=== PATIENT | female | born 1955 | race African-American/Black ===

== ENCOUNTER 2017-01-18 17:32 | Emergency (ER) | payer OTHER ==
[~2017-01-18] VITALS: Ht 165.1 cm; Wt 86.2 kg
[2017-01-18 17:57] VITALS: BP 137/72
--- NOTE | 2017-01-18 18:44 | PHYS DOC ---
Past Medical History Past Medical History: CAD, [place], Other Additional Past Medical Histor: BACK PAIN, SPINAL STENOSIS Past Surgical History: No Surgical History Alcohol Use: None Drug Use: None Adult General Chief Complaint Chief Complaint: KNEE INJURY HPI HPI Patient is a 61 year old female who presents with left knee injury. The patient states 1 week ago she slipped on a marble floor, fell forward onto left knee. She complains of persistent pain & swelling anteriorly. She was able to bear weight immediately after injury as well as today. No syncope contributing to fall, denies other injuries including head trauma. She has no previous history of knee injury. has been applying ice, taking extra strength tylenol, applying topical medications without relief. PCP at [facility]. Review of Systems Review of Systems Constitutional: Denies fever or chills HENT: Denies nasal congestion or sore throat Respiratory: Denies cough or shortness of breath Cardiovascular: Denies chest pain GI: Denies abdominal pain Musculoskeletal: Reports knee pain Integument: Denies rash Neurologic: Denies headache Allergies Allergies Allergies Coded Allergies Type Severity Reaction Last Updated Verified NSAIDS (Non-Steroidal Anti-Inflamma Allergy Intermediate Rash 01/18/17 Yes codeine Allergy Intermediate Rash 01/18/17 Yes Physical Exam Physical Exam Constitutional: obese, no acute distress, non-toxic appearance. HENT: Normocephalic, atraumatic, bilateral external ears normal, oropharynx moist, nose normal. Eyes: conjunctiva normal, no discharge. Cardiovascular: no edema. Lungs & Thorax: no respiratory distress. Abdomen: nondistended. Skin: Warm, dry, Extremities: left knee no deformity, mild generalized/anterior swelling & ecchymosis inferolaterally around the patella, tenderness anteriorly over patella, no medial or lateral joint line tenderness, intact straight leg raise, intact flexion/extension, negative anterior/posterior drawer, stable to valgus/ varus stress, dp/pt 2+, sensation intact to foot. no ankle tenderness. Neurologic: Alert and oriented X 3 Current Patient Data Vital Signs Vital Signs Date Time Temp Pulse Resp B/P (MAP) Pulse Ox O2 Delivery O2 Flow Rate FiO2 01/18/17 17:57 98.0 99 18 100 Room Air 98.0 EKG EKG [] Radiology/Procedures Radiology/Procedures XR L knee: interpreted by me: no fracture or dislocation, no acute process.[] Course & Med Decision Making Course & Med Decision Making Pertinent Labs and Imaging studies reviewed. (See chart for details) Patient presents with knee pain. Obtained XR. Negative for fracture. Recommend rest, catalina wrap, elevation, ice, tylenol/ibuprofen. Follow up with Dr. Shaikh in orthopedic clinic if not improving in 1 week. Come back for neurovascular compromise or otherwise worsening condition. Discharged home in stable condition. [] Dragon Disclaimer Dragon Disclaimer This electronic medical record was generated, in whole or in part, using a voice recognition dictation system. Departure Departure Impression: Primary Impression: Knee pain Disposition: HOME, SELF-CARE Condition: STABLE Referrals: DAMIEN NI MD Patient Instructions: Knee Pain, [id number] Additional Instructions: You were seen in the emergency department today for knee pain. The x-ray did not show a fracture. Please rest, apply ice, use catalina wrap, elevate when able, take tylenol or ibuprofen for pain. Follow up with Dr. Shaikh if symptoms continue in 1 week. Come back for cold foot, numbness or weakness in foot, any otherwise worsening condition. IVETTE COLÓN MD January 18, 2017 18:44
--- NOTE | 2017-01-19 09:29 | RAD ---
Indication fall, pain. AP oblique and lateral views of the left knee were obtained as well as a sunrise view. No acute bony finding is seen. Vascular clips are noted. IMPRESSION: No acute bony finding
== END 2017-01-18 19:13 | disposition home or self-care (01) ==
LOC: ER 17:32
DX: M25.562 Pain in left knee (principal); I25.10 Atherosclerotic heart disease of native coronary artery without angina pectoris; I25.2 Old myocardial infarction; M48.00 Spinal stenosis, site unspecified; Z88.5 Allergy status to narcotic agent; Z88.8 Allergy status to other drugs, medicaments and biological substances; W01.0XXA Fall on same level from slipping, tripping and stumbling without subsequent striking against object, initial encounter; Y93.89 Activity, other specified; Y99.8 Other external cause status; Y92.89 Other specified places as the place of occurrence of the external cause
CPT/HCPCS: 73564; 99284

== ENCOUNTER 2018-11-28 10:07 | Emergency (ER) | payer OTHER ==
[~2018-11-28] VITALS: Ht 165.1 cm; Wt 86.6 kg
[2018-11-28] MEDS ORDERED: ACETAMINOPHEN 325 MG TABLET. PO ONE (11:00)
--- NOTE | 2018-11-28 11:20 | PHYS DOC ---
Past Medical History Past Medical History: CAD, [place], Other Additional Past Medical Histor: BACK PAIN, SPINAL STENOSIS Past Surgical History: Angioplasty, Coronary Bypass Surgery, Other Additional Past Surgical Histo: BACK X 2,CARDIAC STENTS Alcohol Use: None Drug Use: None Adult General Chief Complaint Chief Complaint: FACE PROBLEM HPI HPI Patient is a 63 year old female who presents with face, neck, and head pain after a mechanical fall w/out LOC. Pt reports falling while stepping onto the sidewalk outside of [facility] on her way to cardiac rehab. She says she fell directly on her chin/face because she did not have time to catch herself with her hands. After the fall she experienced new onset neck pain, upper back (T1~8) pain, headache, and mouth/jaw pain along with blurry vision. The pain is described as a burning pain rated 6 or 7/10 that radiates to her arms and anterior thigh. Her jaw/chin pain is causing her the most discomfort per pt. She adamantly denies LOC. She denies n/v, SOB, CP, dysuria, hematuria, and dysuria. She denies muscle weakness/paralysis or numbness. The patient also noted becoming progressively more "sleepy" since her fall. Review of Systems Review of Systems Constitutional: Denies fever or chills Eyes: Admits new onset blurry vision. Denies redness, or eye pain HENT: Denies nasal congestion or sore throat Respiratory: Denies cough or shortness of breath Cardiovascular: No additional information not addressed in HPI GI: Denies abdominal pain, nausea, vomiting, bloody stools or diarrhea : Denies dysuria or hematuria Musculoskeletal: Admits upper thoracic back pain, neck pain, jaw pain, chin pain , and joint pain. Integument: Denies rash or skin lesions [] Neurologic: Admits headache. Denies focal weakness or sensory changes [] All other systems were reviewed and found to be within normal limits, except as documented in this note. Current Medications Current Medications Current Medications Medications (Trade) Dose Ordered Sig/Oksana Start Time Stop Time Status Last Admin Dose Admin Acetaminophen (Tylenol) 650 mg 1X ONCE 11/28/18 11:00 11/28/18 11:01 DC 11/28/18 12:00 650 MG Allergies Allergies Allergies Coded Allergies Type Severity Reaction Last Updated Verified NSAIDS (Non-Steroidal Anti-Inflamma Allergy Intermediate Rash 01/18/17 Yes codeine Allergy Intermediate Rash 01/18/17 Yes rosuvastatin Allergy Intermediate 11/28/18 Yes Physical Exam Physical Exam Constitutional: Well developed, well nourished, no acute distress, non-toxic appearance. [] HENT: Normocephalic, bilateral external ears normal, oropharynx moist but dried blood in the oropharynx and lips appreciated on inspection, Abrasion on chin right of midline, abrasion on nose, scant dried blood appreciated on nasal inspection. Eyes: PERRLA, EOMI, conjunctiva normal, no discharge. Neck: Normal range of motion, no tenderness, supple, no stridor. Cardiovascular:Heart rate regular rhythm, no murmur Lungs & Thorax: Bilateral breath sounds clear to auscultation Abdomen: Bowel sounds normal, soft, no tenderness, no masses, no pulsatile masses. Skin: Warm, dry, no erythema, no rash. Back: tenderness in neck and thoracic region, no CVA tenderness. Extremities: No tenderness, no cyanosis, no clubbing, ROM intact, no edema. 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 CN II-XII grossly intact b/l Psychologic: Affect normal, judgement normal, mood normal. Current Patient Data Vital Signs Vital Signs Date Time Temp Pulse Resp B/P (MAP) Pulse Ox O2 Delivery O2 Flow Rate FiO2 11/28/18 10:11 98.0 83 20 188/85 (119) 100 Room Air 98.0 EKG EKG [] Radiology/Procedures Radiology/Procedures [] Course & Med Decision Making Course & Med Decision Making Consuelo Laughlin is a 63 yo female with a history of CAD, NM, and Spinal Stenosis presenting with a mechanical fall landing directly on her face. She did not have a LOC and can relay the events happening both before and after the fall occurred. After the fall she describes new onset burning pain in the neck, upper thoracic spine, and the jaw/chin that she rates a 6 or 7 out of 10. She also complains of new onset WATKINS and blurry vision. Upon arrival to the ED a c spine collar was put on the patient. Her jaw and chin pain is most bothersome to her per pt. 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 She denies CP, SOB, and n/v. Ddx Fracture - maxilla, mandibular, cervical spine, nasal EDH/SDH TBI Workup C-spine collar placed, CT scan w/out contrast. imaging negative reassured d/c stable condition Dragon Disclaimer Dragon Disclaimer This electronic medical record was generated, in whole or in part, using a voice recognition dictation system. Departure Departure Impression: Primary Impression: Contusion of face Disposition: HOME, SELF-CARE Condition: STABLE Referrals: IVETTE GUADARRAMA (PCP) KATELIN HONEYCUTT MD Nov 28, 2018 11:20
--- NOTE | 2018-11-28 11:45 | RAD ---
PQRS Compliance Statement: One or more of the following individualized dose reduction techniques were utilized for this examination: 1. Automated exposure control 2. Adjustment of the mA and/or kV according to patient size 3. Use of iterative reconstruction technique CT HEAD, MAXILLOFACIAL, AND CERVICAL SPINE WITHOUT CONTRAST History: FALL ON CURB FACIAL INJURY Comparison: MR brain without contrast March 11, 2013. Procedure: Axial images are obtained of the head from the skull base through the vertex without IV contrast. Noncontrast helical CT of the cervical spine was performed. Axial, sagittal, and coronal reconstructions were obtained. Helical CT imaging of the facial bones is performed without IV contrast. Findings: The ventricles and sulci are normal for the patient's age. No mass-effect, midline shift, hemorrhage or obvious acute infarction is identified. Basilar cisterns are patent. Bone windows demonstrate no significant calvarial abnormality. No acute facial bone fracture. The orbital floors are intact. The ostiomeatal complexes are patent. The patient is edentulous. Minimal mucosal thickening inferiorly in the bilateral maxillary sinuses. There is no air-fluid level. Mastoid air cells are well aerated. There is no evidence of acute fracture or acute malalignment of the cervical spine. Straightening of normal cervical lordosis may be positional or due to muscle spasm. Mild grade 1 retrolisthesis of C7 on T1. The alignment is otherwise maintained. There is disc space narrowing at C7/T1. Other disc spaces relatively maintained. There is degenerative endplate spurring of C5/C6 and C6/C7 and C7/T1. No perched or jumped facets. The craniovertebral junction is normal. Visualized soft tissues of the neck demonstrate no significant abnormalities. The visualized lung apices are clear. IMPRESSION: 1. No acute intracranial abnormality. 2. No acute fracture of the cervical spine. 3. No acute facial bone fracture. Electronically signed by: Wolf Paiz MD (11/28/2018 11:43 AM) [id number]
[2018-11-28 12:19] VITALS: BP 163/72
== END 2018-11-28 12:38 | disposition home or self-care (01) ==
LOC: ER 10:07
DX: S00.83XA Contusion of other part of head, initial encounter (principal); M54.2 Cervicalgia; M54.6 Pain in thoracic spine; I25.2 Old myocardial infarction; I25.10 Atherosclerotic heart disease of native coronary artery without angina pectoris; Z95.5 Presence of coronary angioplasty implant and graft; Z95.1 Presence of aortocoronary bypass graft; Z88.5 Allergy status to narcotic agent; Z88.6 Allergy status to analgesic agent; Z88.8 Allergy status to other drugs, medicaments and biological substances; W10.1XXA Fall (on)(from) sidewalk curb, initial encounter; Y93.9 Activity, unspecified; Y92.238 Other place in hospital as the place of occurrence of the external cause; Y99.8 Other external cause status
CPT/HCPCS: 70450; 70486; 72125; 99284-25

== ENCOUNTER 2018-12-11 22:29 | Emergency (ER) | payer OTHER ==
[~2018-12-11] VITALS: Ht 165.1 cm; Wt 86.6 kg
[2018-12-11 22:37] VITALS: BP 158/72
[2018-12-11] MEDS ORDERED: TETRACAINE 0.5% OPHTH SOLUTION 4ML BOTTLE. OS ONE (23:45)
--- NOTE | 2018-12-12 00:14 | RAD ---
CT scan of the orbits without contrast 12/03/2018 CLINICAL HISTORY: Patient fell one week ago striking face. Patient feels like left eye is bulging out. TECHNIQUE: Unenhanced, contiguous, 0.625 mm axial sections were obtained through the facial bones and orbits. 3 mm reconstructed sagittal, axial and coronal images were obtained. One or more of the following individualized dose reduction techniques were utilized for this study: 1. Automated exposure control. 2. Adjustment of the mA and/or kV according to patient size. 3. Use of iterative reconstruction technique. Findings: No facial bone fracture is seen. No orbital fracture is noted. The globes, extraocular muscles and optic nerve sheath complexes are within normal limits bilaterally. No orbital hemorrhage is seen. The paranasal sinuses are essentially clear. No air-fluid level is seen. The patient is edentulous. IMPRESSION: No facial bone or orbital fracture is seen. Electronically signed by: Skip Mcgee MD (12/12/2018 12:11 AM) [facility]
--- NOTE | 2018-12-12 00:33 | PHYS DOC ---
Past Medical History Past Medical History: CAD, [place], Other Additional Past Medical Histor: BACK PAIN, SPINAL STENOSIS (ADRIANNE SLAUGHTER APRN) Past Surgical History: No Surgical History, Coronary Bypass Surgery, Other Additional Past Surgical Histo: BACK X 2,CARDIAC STENTS (ADRIANNE SLAUGHTER APRN) Alcohol Use: None Drug Use: None (ADRIANNE SLAUGHTER APRN) Adult General Chief Complaint Chief Complaint: SKIN RASH/ABSCESS [facility] HPI Patient is a 63 year old female who presents to the emergency department with complaints of a rash on her chin. Patient states she was seen here on November 28 after she fell in a parking lot. She has been using peroxide to clean the area and applying [id number] triple antibiotic ointment to the area but reports that the redness has gotten worse and now the skin itches. She denies any fever, nausea, vomiting, neck pain, or drainage from the rash. In addition, patient continues to report having blurry vision in her left eye since the fall. She reports concern of her eye feeling like it is bulging out of the socket in the mornings when she wakes up, she denies any knew injury since the fall. (ADRIANNE SLAUGHTER APRN) Review of Systems Review of Systems Constitutional: Denies fever or chills [] Eyes: See HPI HENT: Denies nasal congestion or sore throat [] Respiratory: Denies cough or shortness of breath [] Cardiovascular: No additional information not addressed in HPI [] GI: Denies nausea, or vomiting [] Musculoskeletal: Denies back pain or joint pain [] Integument: See HPI Neurologic: Denies headache, focal weakness or sensory changes [] Complete systems were reviewed and found to be within normal limits, except as documented in this note. (ADRIANNE SLAUGHTER APRN) Current Medications Current Medications Current Medications Medications (Trade) Dose Ordered Sig/Oksana Start Time Stop Time Status Last Admin Dose Admin Tetracaine HCl (Tetracaine) 1 drop 1X ONCE 12/11/18 23:45 12/11/18 23:46 DC 12/11/18 23:45 1 DROP (ANI ROMANO DO) Allergies Allergies Allergies Coded Allergies Type Severity Reaction Last Updated Verified NSAIDS (Non-Steroidal Anti-Inflamma Allergy Intermediate Rash 01/18/17 Yes codeine Allergy Intermediate Rash 01/18/17 Yes rosuvastatin Allergy Intermediate 11/28/18 Yes (ANI ROMANO DO) Physical Exam Physical Exam Constitutional: Well developed, well nourished, no acute distress, non-toxic appearance, obese. [] HENT: Normocephalic, bilateral external ears normal, oropharynx moist, no oral exudates, nose normal. [] Eyes: PERRLA, EOMI, conjunctiva normal, no discharge, mild swelling noted to left eyelid with healing bruising noted to upper eyelid; red reflex present bilaterally [] Neck: Normal range of motion, no stridor. [] Lungs & Thorax: Respirations even and unlabored, no retractions, no respiratory distress Skin: Warm, dry; mild erythema with pustules consistent with impetigo noted to chin Extremities: No cyanosis, ROM intact, Neurologic: Alert and oriented X 3, normal motor function, normal sensory function, no focal deficits noted. [] Psychologic: Affect normal, judgement normal, mood normal. [] (ADRIANNE SLAUGHTER APRN) Current Patient Data Vital Signs Vital Signs Date Time Temp Pulse Resp B/P (MAP) Pulse Ox O2 Delivery O2 Flow Rate FiO2 12/11/18 22:37 98.6 89 16 158/72 (100) 98 Room Air 98.6 (ANI ROMANO DO) EKG EKG [] (ADRIANNE SLAUGHTER APRN) Radiology/Procedures Radiology/Procedures PROCEDURE: CT ORBITS WO CONTRAST CT scan of the orbits without contrast 12/03/2018 CLINICAL HISTORY: Patient fell one week ago striking face. Patient feels like left eye is bulging out. TECHNIQUE: Unenhanced, contiguous, 0.625 mm axial sections were obtained through the facial bones and orbits. 3 mm reconstructed sagittal, axial and coronal images were obtained. One or more of the following individualized dose reduction techniques were utilized for this study: 1. Automated exposure control. 2. Adjustment of the mA and/or kV according to patient size. 3. Use of iterative reconstruction technique. Findings: No facial bone fracture is seen. No orbital fracture is noted. The globes, extraocular muscles and optic nerve sheath complexes are within normal limits bilaterally. No orbital hemorrhage is seen. The paranasal sinuses are essentially clear. No air-fluid level is seen. The patient is edentulous. IMPRESSION: No facial bone or orbital fracture is seen.. Visual Acuities L eye 20/25, R eye 20/200, both eyes 20/20 Intraocular pressure of R eye is 15 (ADRIANNE SLAUGHTER APRN) Course & Med Decision Making Course & Med Decision Making Pertinent Labs and Imaging studies reviewed. (See chart for details) dx: impetigo of chin, closed head injury CT head negative for any acute findings. IOP normal no evidence of acute eye injury, physical exam consistent with impetigo. Pt encouraged to only use mild face cleansers for facial washing. Prescription written for mupirocin ointment, Follow up with PCP if sx persist, return to ER if sx worsen. Pt was also evaluated by Dr. Romano. Patient verbalized an understanding of home care, medications, follow-up, and return to ED instructions and was in agreement with the plan of care. [] (ADRIANNE SLAUGHTER APRN) Dragon Disclaimer Dragon Disclaimer This electronic medical record was generated, in whole or in part, using a voice recognition dictation system. (ADRIANNE SLAUGHTER APRN) Departure Departure Impression: Primary Impression: Impetigo any site Additional Impressions: History of closed head injury History of blurred vision Disposition: 01 HOME, SELF-CARE Condition: STABLE Referrals: IVETTE GUADARRAMA (PCP) Patient Instructions: Head Injury, Adult, [id number], Impetigo Additional Instructions: Fill the prescription and use it as directed. Use only mild facial cleansers to cleanse face. Avoid putting any type of makeup, moisturizer, or other facial products over chin. Follow-up with her primary care doctor for persistent vision changes following head injury. Return to the ER if symptoms worsen. Scripts Mupirocin (MUPIROCIN OINTMENT) 22 Gm Oint...g. 1 KARTIK TP TID for WOUND CARE for 7 Days, #1 TUBE 0 Refills Prov: ADRIANNE SLAUGHTER APRN 12/12/18 Attending Signature Attending Signature I have reviewed the PA/CURED MEAT PACKING SUPERVISOR's note and plan of care. I was available for consultation as needed at all times during the patient's visit in the emergency department. I agree with the clinical impression, plan and disposition. (ANI ROMANO DO) Problem Qualifiers ADRIANNE SLAUGHTER APRN Dec 12, 2018 00:33 ANI ROMANO DO Dec 14, 2018 10:16
[2018-12-12] MEDS ORDERED: MUPI22OI2 TP (00:51)
== END 2018-12-12 01:05 | disposition home or self-care (01) ==
LOC: ER 22:29
DX: S00.12XA Contusion of left eyelid and periocular area, initial encounter (principal); S09.90XA Unspecified injury of head, initial encounter; L01.09 Other impetigo; I25.2 Old myocardial infarction; I25.10 Atherosclerotic heart disease of native coronary artery without angina pectoris; Z95.5 Presence of coronary angioplasty implant and graft; Z95.1 Presence of aortocoronary bypass graft; Z88.5 Allergy status to narcotic agent; Z88.6 Allergy status to analgesic agent; Z88.8 Allergy status to other drugs, medicaments and biological substances; W18.39XA Other fall on same level, initial encounter; Y93.89 Activity, other specified; Y92.481 Parking lot as the place of occurrence of the external cause; Y99.8 Other external cause status
CPT/HCPCS: 70480; 99284-25

== ENCOUNTER 2018-12-15 10:24 | Emergency (ER) | payer OTHER ==
[~2018-12-15] VITALS: Ht 165.1 cm; Wt 86.6 kg
[~2018-12-15 10:24] MED LIST: MUPI22OI2 TP
[2018-12-15] MEDS ORDERED: PROCHLORPERAZINE 10 MG/2 ML VIAL. IV ONE (11:15)
[2018-12-15] MEDS ORDERED: diphenhydrAMINE 50 MG/ML VIAL IVP ONE (11:15)
[2018-12-15 11:29] LABS: BASO # 0.1 x10^3/uL (0.0-0.2); BASO % 1 % (0-3); EOS # 0.3 x10^3/uL (0.0-0.7); EOS % 4 % (0-3); HEMATOCRIT 35.3 % (36.0-47.0); HEMOGLOBIN 11.6 g/dL (12.0-15.5); LYMPH # 2.5 x10^3/uL (1.0-4.8); LYMPH % 34 % (24-48); MEAN CORPUSCULAR HEMOGLOBIN 31 pg (25-35); MEAN CORPUSCULAR HGB CONC 33 g/dL (31-37); MEAN CORPUSCULAR VOLUME 95 fL (79-100); MONO # 0.5 x10^3/uL (0.0-1.1); MONO % 6 % (0-9); NEUT % 55 % (31-73); PLATELET COUNT 250 x10^3/uL (140-400); RED BLOOD COUNT 3.72 x10^6/uL (3.50-5.40); RED CELL DISTRIBUTION WIDTH 14.3 % (11.5-14.5); WHITE BLOOD COUNT 7.2 x10^3/uL (4.0-11.0)
[2018-12-15 11:37] LABS: CREATININE 2.1 mg/dL (0.6-1.0); POTASSIUM 3.7 mmol/L (3.5-5.1)
[2018-12-15 11:54] LABS: ALBUMIN 3.2 g/dL (3.4-5.0); ALBUMIN/GLOBULIN RATIO 0.8 (1.0-1.7); TOTAL BILIRUBIN 0.4 mg/dL (0.2-1.0)
--- NOTE | 2018-12-15 12:17 | RAD ---
CT HEAD INDICATION: left side numbness COMPARISON: 11/28/2018 Exposure: One or more of the following individualized dose reduction techniques were utilized for this examination: 1. Automated exposure control 2. Adjustment of the mA and/or kV according to patient size 3. Use of iterative reconstruction technique TECHNIQUE: 5 mm contiguous axial images were obtained from the skull base to the vertex in both bone and soft tissue algorithm. FINDINGS: Mild bilateral periventricular white matter hypodensities likely chronic small vessel ischemic disease. No evidence of acute intracranial hemorrhage. No extra-axial fluid collections. No mass effect or midline shift. Ventricular size is appropriate. Basal cisterns are patent. No fractures identified.Kim-white differentiation is preserved.Globes and orbits are within normal limits. Paranasal sinuses and mastoid air cells are clear. IMPRESSION: No acute intracranial findings. Electronically signed by: Ananda Latif MD (12/15/2018 12:14 PM) [id number]
--- NOTE | 2018-12-15 12:26 | EKG ---
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
[2018-12-15 13:00] VITALS: BP 182/87
--- NOTE | 2018-12-15 16:58 | PHYS DOC ---
Past Medical History Past Medical History: CAD, [place], Other Additional Past Medical Histor: BACK PAIN, SPINAL STENOSIS Past Surgical History: Angioplasty, Coronary Bypass Surgery, Other Additional Past Surgical Histo: BACK X 2,CARDIAC STENTS Alcohol Use: None Drug Use: None Adult General Chief Complaint Chief Complaint: NEURO SYMPTOMS/DEFICITS [facility] HPI Patient is a 63 year old female who is presenting to the emergency room with a chief complaint of numbness and tingling and fatigue. She says she has been overworked recently she has not been sleeping well she went over to cardiac rehabilitation and she noticed her blood pressure was pretty high and she has had some intermittent numbness and tingling so she came to the emergency room for evaluation she says in fact that that tingling and numbness that she is feeling she feels frequently pretty regularly actually she is used to that but she had not felt on her face before and she did feel on her face earlier no weakness no speech difficulty no visual changes no chest pain she tells me she thinks she really just needs to go home and take a nap. Review of Systems Review of Systems Constitutional: Denies fever or chills [] Eyes: Denies change in visual acuity, redness, or eye pain [] HENT: Denies nasal congestion or sore throat [] Respiratory: Denies cough or shortness of breath [] Cardiovascular: No additional information not addressed in HPI [] GI: Denies abdominal pain, nausea, vomiting, bloody stools or diarrhea [] : Denies dysuria or hematuria [] Musculoskeletal: Denies back pain or joint pain [] Integument: Denies rash or skin lesions [] Neurologic: Denies headache, focal weakness or sensory changes [] Endocrine: Denies polyuria or polydipsia [] All other systems were reviewed and found to be within normal limits, except as documented in this note. Current Medications Current Medications Current Medications Medications (Trade) Dose Ordered Sig/Oksana Start Time Stop Time Status Last Admin Dose Admin Diphenhydramine HCl (Benadryl) 25 mg 1X ONCE 12/15/18 11:15 12/15/18 11:16 DC Prochlorperazine Edisylate (Compazine) 5 mg 1X ONCE 12/15/18 11:15 12/15/18 11:16 DC Allergies Allergies Allergies Coded Allergies Type Severity Reaction Last Updated Verified NSAIDS (Non-Steroidal Anti-Inflamma Allergy Intermediate Rash 01/18/17 Yes codeine Allergy Intermediate Rash 01/18/17 Yes rosuvastatin Allergy Intermediate 11/28/18 Yes Physical Exam Physical Exam Constitutional: Well developed, well nourished, no acute distress, non-toxic appearance. [] HENT: Normocephalic, atraumatic, bilateral external ears normal, oropharynx moist, no oral exudates, nose normal. [] Eyes: PERRLA, EOMI, conjunctiva normal, no discharge. [] Neck: Normal range of motion, no tenderness, supple, no stridor. [] Cardiovascular:Heart rate regular rhythm, no murmur [] Lungs & Thorax: Bilateral breath sounds clear to auscultation [] Abdomen: Bowel sounds normal, soft, no tenderness, no masses, no pulsatile masses. [] Skin: Warm, dry, no erythema, no rash. [] Back: No tenderness, no CVA tenderness. [] Extremities: No tenderness, no cyanosis, no clubbing, ROM intact, no edema. [] Neurologic: Alert and oriented X 3, normal motor function, and NIH stroke scale is actually 0 she can feel everything okay she does report a subjective sensation of numbness but her sensory examination is normal. Fingerare intact speech normal gait normal Psychologic: Affect normal, judgement normal, mood normal. [] Current Patient Data Vital Signs Vital Signs Date Time Temp Pulse Resp B/P (MAP) Pulse Ox O2 Delivery O2 Flow Rate FiO2 12/15/18 13:00 76 16 100 12/15/18 10:33 98.4 179/82 (114) Room Air 98.4 Lab Values Laboratory Tests Test 12/15/18 11:19 White Blood Count 7.2 x10^3/uL (4.0-11.0) Red Blood Count 3.72 x10^6/uL (3.50-5.40) Hemoglobin 11.6 g/dL (12.0-15.5) L Hematocrit 35.3 % (36.0-47.0) L Mean Corpuscular Volume 95 fL (79-100) Mean Corpuscular Hemoglobin 31 pg (25-35) Mean Corpuscular Hemoglobin Concent 33 g/dL (31-37) Red Cell Distribution Width 14.3 % (11.5-14.5) Platelet Count 250 x10^3/uL (140-400) Neutrophils (%) (Auto) 55 % (31-73) Lymphocytes (%) (Auto) 34 % (24-48) Monocytes (%) (Auto) 6 % (0-9) Eosinophils (%) (Auto) 4 % (0-3) H Basophils (%) (Auto) 1 % (0-3) Neutrophils # (Auto) 4.0 x10^3uL (1.8-7.7) Lymphocytes # (Auto) 2.5 x10^3/uL (1.0-4.8) Monocytes # (Auto) 0.5 x10^3/uL (0.0-1.1) Eosinophils # (Auto) 0.3 x10^3/uL (0.0-0.7) Basophils # (Auto) 0.1 x10^3/uL (0.0-0.2) Sodium Level 143 mmol/L (136-145) Potassium Level 3.7 mmol/L (3.5-5.1) Chloride Level 107 mmol/L (98-107) Carbon Dioxide Level 24 mmol/L (21-32) Anion Gap 12 (6-14) Blood Urea Nitrogen 37 mg/dL (7-20) H Creatinine 2.1 mg/dL (0.6-1.0) H Estimated GFR (Cockcroft-Gault) 29.0 BUN/Creatinine Ratio 18 (6-20) Glucose Level 131 mg/dL (70-99) H Calcium Level 9.0 mg/dL (8.5-10.1) Total Bilirubin 0.4 mg/dL (0.2-1.0) Aspartate Amino Transferase (AST) 20 U/L (15-37) Alanine Aminotransferase (ALT) 24 U/L (14-59) Alkaline Phosphatase 97 U/L (46-116) Troponin I Quantitative < 0.017 ng/mL (0.000-0.055) Total Protein 7.0 g/dL (6.4-8.2) Albumin 3.2 g/dL (3.4-5.0) L Albumin/Globulin Ratio 0.8 (1.0-1.7) L Laboratory Tests 12/15/18 11:19 Laboratory Tests 12/15/18 11:19 EKG EKG []Normal sinus rhythm rate of 78 no acute ischemic changes noted interpreted by me the time of encounter. Radiology/Procedures Radiology/Procedures [] Impressions: INDINGS: Mild bilateral periventricular white matter hypodensities likely chronic small vessel ischemic disease. No evidence of acute intracranial hemorrhage. No extra-axial fluid collections. No mass effect or midline shift. Ventricular size is appropriate. Basal cisterns are patent. No fractures identified.Kim-white differentiation is preserved.Globes and orbits are within normal limits. Paranasal sinuses and mastoid air cells are clear. IMPRESSION: No acute intracranial findings. Electronically signed by: Ananda Latif MD (12/15/2018 12:14 PM) [id number] Course & Med Decision Making Course & Med Decision Making Pertinent Labs and Imaging studies reviewed. (See chart for details) []On reevaluation the emergency room the numbness had resolved completely. Patient really wanted to go home she was feeling better we did talk about the very unlikely but I suppose possible chance of a small missed CVA, if that were present would be a sensory only and given the fact that her symptoms resolved I think that is highly unlikely she really wants to go home I think that is reasonable. I did tell her about the importance of follow-up for her blood pressure and she will do so Dragon Disclaimer Dragon Disclaimer This electronic medical record was generated, in whole or in part, using a voice recognition dictation system. Departure Departure Impression: Primary Impression: Numbness Disposition: 01 HOME, SELF-CARE Condition: STABLE Additional Instructions: Thank you for coming to the emergency room. Her chest results have come back looking stable your creatinine is stable. CT head showed no acute pathology or numbness has seemed to resolved, please come back for any new or worsening symptoms KATELIN HONEYCUTT MD Dec 15, 2018 16:58
== END 2018-12-15 13:12 | disposition home or self-care (01) ==
LOC: ER 10:24
DX: R20.0 Anesthesia of skin (principal); I25.10 Atherosclerotic heart disease of native coronary artery without angina pectoris; I25.2 Old myocardial infarction; Z95.1 Presence of aortocoronary bypass graft; Z88.5 Allergy status to narcotic agent; Z88.8 Allergy status to other drugs, medicaments and biological substances
CPT/HCPCS: 36415; 70450; 80053; 84484; 85025; 93005; 99284

== ENCOUNTER 2018-12-31 15:55 | Emergency (ER) | payer OTHER ==
[~2018-12-31] VITALS: Ht 165.1 cm; Wt 86.6 kg
[2018-12-31 16:36] VITALS: BP 191/86
[2018-12-31] MEDS ORDERED: HYDR25TA PO (16:46)
[2018-12-31] MEDS ORDERED: PRED-220 PO (16:46)
--- NOTE | 2018-12-31 16:46 | PHYS DOC ---
Past Medical History Past Medical History: CAD, [place], Other Additional Past Medical Histor: BACK PAIN, SPINAL STENOSIS (ROSEY GONG) Past Surgical History: Angioplasty, Coronary Bypass Surgery, Other Additional Past Surgical Histo: BACK X 2,CARDIAC STENTS (ROSEY GONG) Alcohol Use: None Drug Use: None (ROSEY GONG) Adult General Chief Complaint Chief Complaint: SKIN RASH/ABSCESS [facility] HPI Patient is a 63 year old female presents to the ED complaining of rash to neck x 3 days. States she had similar symptoms of a rash on her chin 2 weeks ago and she's been using a steroid cream outpatient which resolved the rash on her chin. Patient states she started using the steroid cream on her neck 2 days ago. States that it has not really improved. Denies new soaps lotions or detergents. Patient states she hasn't worn a new necklace but thinks she may have came in contact with something and accidentally rubbed her neck. States it itches. Rates the itching as 7 out of 10. Denies injury, drainage, sore throat, chest pain, shortness of breath, fever or nausea/vomiting. (ROSEY GONG) Review of Systems Review of Systems Constitutional: Denies fever or chills [] Eyes: Denies change in visual acuity, redness, or eye pain [] HENT: Denies nasal congestion or sore throat [] Respiratory: Denies cough or shortness of breath [] Cardiovascular: No additional information not addressed in HPI [] GI: Denies abdominal pain, nausea, vomiting, bloody stools or diarrhea [] : Denies dysuria or hematuria [] Musculoskeletal: Denies back pain or joint pain [] Integument: Complains of rash to neck. Denies skin lesions [] Neurologic: Denies headache, focal weakness or sensory changes [] All other systems were reviewed and found to be within normal limits, except as documented in this note. (ROSEY GONG) Allergies Allergies Allergies Coded Allergies Type Severity Reaction Last Updated Verified NSAIDS (Non-Steroidal Anti-Inflamma Allergy Intermediate Rash 01/18/17 Yes codeine Allergy Intermediate Rash 01/18/17 Yes rosuvastatin Allergy Intermediate 11/28/18 Yes (ANI ROMANO DO) Physical Exam Physical Exam Constitutional: Well developed, well nourished, no acute distress, non-toxic appearance. [] HENT: Normocephalic, atraumatic Neck: Normal range of motion, no tenderness, supple, no stridor. [] Cardiovascular:Heart rate regular rhythm, no murmur [] Lungs & Thorax: Bilateral breath sounds clear to auscultation [] Skin: Warm, dry. mild erythematous macular rash to anterior neck in contact distribution. no drainage, lesions or pustules. Back: No tenderness, no CVA tenderness. [] Extremities: No tenderness, no cyanosis, no clubbing, ROM intact, no edema. [] Neurologic: Alert and oriented X 3, normal motor function, normal sensory function, no focal deficits noted. [] Psychologic: Affect normal, judgement normal, mood normal. [] (ROSEY GONG) Current Patient Data Vital Signs Vital Signs Date Time Temp Pulse Resp B/P (MAP) Pulse Ox O2 Delivery O2 Flow Rate FiO2 12/31/18 16:36 98.2 98 20 191/86 (121) 99 Room Air 98.2 (ANI ROMANO DO) EKG EKG [] (ROSEY GONG) Radiology/Procedures Radiology/Procedures [] (ROSEY GONG) Course & Med Decision Making Course & Med Decision Making Pertinent Labs and Imaging studies reviewed. (See chart for details) Discussed continuing topical steroids outpatient. We'll prescribe hydroxyzine and oral prednisone short course. Discussed symptomatic treatment and abstaining for potential allergens. Discussed follow-up with PCP this week. Provided contact information/education. Discussed reasons to return to the ED. Patient understands and agrees with plan. (ROSEY GONG) Dragon Disclaimer Dragon Disclaimer This electronic medical record was generated, in whole or in part, using a voice recognition dictation system. (ROSEY GONG) Departure Departure Impression: Primary Impression: Contact dermatitis Disposition: 01 HOME, SELF-CARE Condition: IMPROVED Referrals: IVETTE GUADARRAMA (PCP) Patient Instructions: Contact Dermatitis Scripts Hydroxyzine Hcl (HYDROXYZINE HCL) 25 Mg Tablet 1 TAB PO TID for 5 Days, #15 TAB Prov: ROSEY GONG 12/31/18 Prednisone (PREDNISONE ) 10 Mg Tablet 30 MG PO DAILY, #4 TAB 0 Refills Prov: ROSEY GONG 12/31/18 Attending Signature Attending Signature I have reviewed the PA/[employer] REPAIRER's note and plan of care. I was available for consultation as needed during the patient's visit in the emergency department. I agree with the clinical impression, plan, and disposition. (ANI ROMANO DO) ROSEY GONG Dec 31, 2018 16:46 ANI ROMANO DO Jan 01, 2019 00:46
== END 2018-12-31 16:57 | disposition home or self-care (01) ==
LOC: ER 15:55
DX: L25.9 Unspecified contact dermatitis, unspecified cause (principal); I25.10 Atherosclerotic heart disease of native coronary artery without angina pectoris; I25.2 Old myocardial infarction; Z95.5 Presence of coronary angioplasty implant and graft; Z88.8 Allergy status to other drugs, medicaments and biological substances; Z88.5 Allergy status to narcotic agent
CPT/HCPCS: 99283